=== PATIENT | female | born 1980 | race Caucasian/White ===

== ENCOUNTER 2018-09-22 07:10 | Inpatient (IN) | payer OTHER, SELFPAY ==
[2018-09-22] MEDS: Lactated Ringers 1,000 ML 50 ML IV ×4 (07:35→22:46)
[2018-09-22 07:52] VITALS: BMI 33.2
[2018-09-22 07:55] LABS: Absolute Neutrophil Count 4.8 X10^3/uL (2.0-7.7); Basophil# 0.02 X10^3/uL; Basophil% 0.3 % (0-1); Eosinophil# 0.08 X10^3/uL; Eosinophils% 1.2 % (0-5); Hematocrit 32.1 % (37-47); Hemoglobin 10.7 g/dl (12.0-15.0); Lymphocyte % 24.5 % (19-41); Mean Corp Hgb Conc 33.3 g/gl (32-36); Mean Corpuscular Hgb 30.5 pg (27.0-32.0); Mean Corpuscular Volume 91.5 fL (81-99); Monocyte# 0.34 X10^3/uL; Monocyte% 4.9 % (0-10); Neutrophil # 4.76 X10^3/uL (2.7-7.7); Neutrophil % 68.5 % (47-70); Platelet Count 143 K/mm3 (150-450); RBC Distribution Width CV 14.8 % (11.6-14.6); RBC Distribution Width SD 48.6 fl (35.1-43.9); Red Blood Count 3.51 M/mm3 (4.2-5.4); White Blood Count 6.9 K/mm3 (4.4-11.0)
[2018-09-22 07:58] LABS: POSITIVE COUNT NO; POSITIVE DIFFERENTIAL NO; POSITIVE MORPHOLOGY NO
[2018-09-22] MEDS: Oxytocin 30 units/NS 500 ml 30 UNITS/500 ML IV.SOLN IV (08:10)
[2018-09-22] MEDS: Acetaminophen 325 MG Tablet PO (14:21)
[2018-09-22] MEDS: fentaNYL-bupivacaine (epidural) 100 ML BAG EPIDURAL ×2 (15:14→19:21)
[2018-09-22] MEDS: Cefazolin 1 GM/50 ML BAG IV (15:31)
[2018-09-22] MEDS: 0.9% Saline Lock 10 ML Syringe IV (19:16)
[2018-09-22] MEDS: Mag Hydrox/Al Hydrox/Simeth 30 ML UDC PO (20:48)
[2018-09-22] MEDS: Oxytocin 30 units/NS 500 ml 30 UNITS/500 ML IV.SOLN 334 UNITS IV (23:25)
--- NOTE | 2018-09-22 23:37 | OP.PCM_ITS ---
Vaginal Delivery Maternal Presentation: Elective Induction Method of Induction: Pitocin, Amniotomy Amniotic Membrane Rupture Type: Artificial Amniotic Fluid Description: Clear Final YU: 09/29/18 Final YU Source: [place] <20 weeks Gestational age: 39 Weeks and 0 Days Date of Procedure: 09/22/18 Pre-Operative Diagnosis: IUP Post-Operative Diagnosis: IUP Surgery/ Procedure Performed: Spontaneous Vaginal Delivery Type of Anesthesia: Epidural Description of Procedure: Spontaneous vaginal delivery of a viable female infant with Apgars of 8/9 from an occiput anterior presentation with clear amniotic fluid and normal three- vessel placenta. No episiotomy. First-degree midline laceration repaired with 3-0 repeat suture. Sponges okay. Delivery physician: Minesh Hunt MD. Presentation: Vertex Placental Delivery Description: Spontaneous Placenta Disposition: [facility] Cord Vessel Description: 3 Vessels Cord Entanglement: None Estimated Blood Loss: 250 cc Infant A gender: Female (1 minute): 8 (5 minute): 9 Episiotomy Description: None Laceration: Midline, 1st degree Medications given after delivery: IV Pitocin Complications: None
--- NOTE | 2018-09-22 23:38 | DCINST_ITS ---
Discharge Diet: No Restrictions Discharge Activity: May Shower, May Take a Tub Bath May resume sexual activity in: 4-6 weeks Additional Activity Instructions:: Nothing in the vagina for 4-6 weeks. You may return to work/school in 6 weeks. Call your doctor if you observe: Fever of 101 or Higher, Inability to urinate, Inability to have a bowel movement, Using more than one pad per hour Additional Instructions: If you experience any of the following, contact your healthcare provider. * Bleeding that soaks a pad every hour for 2 hours * Unrelieved incision or abdominal pain * Swelling, redness, discharge or bleeding from your incision or episiotomy site * Your incision begins to separate * Problems urinating (including inability to urinate or burning while urinating). * Visual changes * Severe headache * Flu-like symptoms * Pain or redness in one of both of your breasts * Pain, warmth, tenderness or swelling in your legs, especially the calf area * Frequent nausea and vomiting * Symptoms of depression or anxiety If you experience any of the following, call 911 or go to the nearest Emergency Room. * Chest pain * Problems breathing * Seizure activity * Partial or complete paralysis of a body part, slurred speech, weakness or drooping of the face, or a sudden inability to walk or hold your balance Allergies/Adverse Reactions: Allergies Penicillins Allergy (Verified 09/22/18 08:39) Unknown Medications to take at Discharge Vits [Prenatabs FA ] 1 tablet PO DAILY 04/08/13 Ferrous Sulfate [Iron Supplement] 325 mg PO DAILY 10/19/15 Docusate Sodium [Colace] 100 mg PO DAILY 09/22/18 Please Follow Up With: Minesh Hunt MD - [phone] When: Call to make an appointment with your doctor in 6 weeks. Primary Care Physician: Care Physician,No Primary [Primary Care Provider] - Test Results: Test results from this visit will be discussed in further detail at your follow- up appointment, if applicable.
[2018-09-22] MEDS: Oxytocin 30 units/NS 500 ml 30 UNITS/500 ML IV.SOLN 167 UNITS IV (23:55)
[2018-09-23] VITALS (7 sets, daily range): BP systolic 96–117; BP diastolic 50–58; PULSE 69–100; RESP 16–18; TEMP 36.3–37.1; O2SAT 95
[2018-09-23] MEDS: 0.9% Saline Lock 10 ML Syringe IV (01:02)
[2018-09-23] MEDS: Ibuprofen 600 MG Tablet PO ×2 (07:06→16:46)
--- NOTE | 2018-09-23 08:48 | PCM.PN.OB ---
Subjective: Patient without complaints. Doing well. Wants to stay until tomorrow as baby's blood sugar was low. Baby weighed 9 pounds 4 ounces. - Physical Exam Vital Signs Temp Pulse Resp BP Pulse Ox 98.4 F 82 18 117/55 L 95 09/23/18 03:15 09/23/18 03:15 09/23/18 03:15 09/23/18 03:15 09/23/18 03:15 Oxygen Delivery Method Room Air Weight: 196 lb 6.91 oz Body Mass Index (BMI) 33.2 Intake and Output for Last 24 Hours 09/21/18 09/22/18 09/23/18 23:59 23:59 23:59 Intake Total 4150 / 4150 Output Total 1700 / 1700 950 / 950 Balance 2450 / 2450 -950 / -950 Medical Necessity - Tobacco Use Smoking Status: Former smoker Assessment/Plan Doing well day #1 status post routine spontaneous vaginal delivery. Continuing present care.
[2018-09-23] MEDS: Senna/Docusate Sodium 1 Tablet PO (11:17)
[2018-09-24 05:33] VITALS: BP 111/77; PULSE 71; RESP 16; TEMP 36.3
--- NOTE | 2018-09-24 08:16 | PCM.PN.OB ---
Subjective: Patient without complaints. Rest feeding going well. Ready to go home today as baby's blood sugars are stabilized. - Physical Exam Vital Signs Temp Pulse Resp BP Pulse Ox 97.3 F L 71 16 111/77 95 09/24/18 05:33 09/24/18 05:33 09/24/18 05:33 09/24/18 05:33 09/23/18 03:15 Oxygen Delivery Method Room Air Weight: 196 lb 6.91 oz Body Mass Index (BMI) 33.2 Intake and Output for Last 24 Hours 09/22/18 09/23/18 09/24/18 23:59 23:59 23:59 Intake Total 4150 / 4150 Output Total 1700 / 1700 950 / 950 Balance 2450 / 2450 -950 / -950 Medical Necessity - Tobacco Use Smoking Status: Former smoker Assessment/Plan Doing well day #2 status post routine spontaneous vaginal delivery. Will release to home with routine instructions.
[2018-09-24 08:30] VITALS: BP 108/54; PULSE 71; RESP 16; TEMP 36.5
[2018-09-24 13:15] VITALS: BP 106/61; PULSE 80; RESP 16; TEMP 36.3
--- NOTE | 2018-09-29 17:28 | NURSING ---
Follow up phone call made. Milk in but trying to stimulate her milk to be a better supply. Everyone was great while a patient here at [facility]. Salma SOLO
== END 2018-09-24 13:30 | disposition home or self-care (01) | DRG 807 ==
PROVIDERS: Admitting Provider Obstetrics & Gynecology; Referring Provider Obstetrics & Gynecology; Visit Provider Obstetrics & Gynecology
DX: O99.42 Diseases of the circulatory system complicating childbirth (principal); Z37.0 Single live birth; I34.1 Nonrheumatic mitral (valve) prolapse; O70.0 First degree perineal laceration during delivery; Z3A.39 39 weeks gestation of pregnancy
CPT/HCPCS: 59025; 59050; 85025; 86850; 86900; 99218; J7120; A4216; G0378

== ENCOUNTER → 2018-11-03 15:50 | Outpatient (CLI) | payer OTHER, SELFPAY ==
[2018-11-03 17:32] LABS: Progesterone Level 0.21 ng/mL (See Comment)
[2018-11-03 18:46] LABS: Internal QC Validated? YES +Cl - CLEAR BKGD; Pregnancy, Serum, hCG Quali. NEGATIVE Negative
== END ==
PROVIDERS: Visit Provider Obstetrics & Gynecology
DX: Z30.430 Encounter for insertion of intrauterine contraceptive device (principal)
CPT/HCPCS: 36415; 84144; 84703